=== PATIENT | female | born 1940 | race Caucasian/White ===

== ENCOUNTER 2016-10-11 20:45 | Emergency (ER) | payer MEDICARE ==
[~2016-10-11 20:45] MED LIST: IRON18 MG PO; PROTONIX40 MG PO; XARELTO10 MG PO
== END 2016-10-11 23:50 | disposition home or self-care (01) ==
LOC: ER1 20:45
DX: M25.552 Pain in left hip (principal); Z88.6 Allergy status to analgesic agent
CPT/HCPCS: 73502; 99283